=== PATIENT | female | born 1995 | race Caucasian/White ===

== ENCOUNTER 2016-11-26 18:08 | Emergency (ER) | payer OTHER ==
--- NOTE | 2016-11-26 19:02 | ED.PDOC ---
History of Present Illness - General Chief Complaint: ENT Problem Stated Complaint: sorethroat, fever Time Seen by Provider: 11/26/16 18:58 Source: patient, RN notes reviewed, Vital Signs reviewed Exam Limitations: no limitations - History of Present Illness Initial Comments: Patient presents to ER with c/o of sore throat and fever to 103.4 that started @ 06:00 today. + chills, body aches and swollen, painful lymph nodes. Timing/Duration: gradual Severity: moderate EENT Location: throat Prearrival Treatment: over the counter meds - Ibuprofen Improving Factors: nothing Worsening Factors: eating Associated Symptoms: fever, sore throat Allergies/Adverse Reactions: Allergies NO KNOWN ALLERGY Allergy (Verified 11/26/16 18:31) Home Medications: Ambulatory Orders Azithromycin 500 mg PO DAILY #4 tab 11/26/16 Review of Systems - Review of Systems Constitutional: States: chills, fever, malaise EENTM: States: throat pain, throat swelling Respiratory: States: no symptoms reported Cardiology: States: no symptoms reported Genitourinary: States: no symptoms reported Musculoskeletal: States: muscle pain Skin: States: no symptoms reported Neurological: States: no symptoms reported All other Systems: No Change from Baseline Past Medical History (General) - Patient Medical History Surgical History: other - Vaccination History Hx Influenza Vaccination: Yes Immunizations Up to Date: Yes - Social History Hx Tobacco Use: Yes Hx Alcohol Use: No Hx Substance Use: No Hx Substance Use Treatment: No Hx Depression: No - Female History Patient is a Female of Child Bearing Age (10 -59 yrs old): Yes Patient : No Family Medical History - Family History Mother Family History: Unknown Physical Exam - Physical Exam General Appearance: Alert, Ill Appearing, Well Developed, Well Groomed, Well Hydrated Eye Exam: bilateral normal Nasal Exam: normal inspection Throat Exam: pharynx swelling, pharynx tenderness, tonsillar swelling Neck: supple, lymphadenopathy (R), lymphadenopathy (L) Cardiovascular/Respiratory: regular rate, rhythm, no M/R/G, normal breath sounds , no respiratory distress Neurologic: alert, normal mood/affect, oriented x 3 Skin Exam: normal color, warm/dry Comments: Vital Signs 11/26/16 18:15 Temperature 101.1 F H Pulse Rate [ 130 H pulse ox] Respiratory 20 Rate Blood Pressure 106/63 [Left Arm] O2 Sat by Pulse 95 Oximetry Progress - Progress Progress: 11/26/16 19:17 Will give Solu-medrol 125mg IM and Zithromax 500mg PO - Results/Orders Results/Orders: Laboratory Tests 11/26/16 18:34 Group A Strep DNA Negative Strep culture pending Departure - Departure Clinical Impression: Pharyngitis Qualifiers: Pharyngitis/tonsillitis etiology: unspecified etiology Qualified Code(s): J02.9 - Acute pharyngitis, unspecified Time of Disposition: 19:18 Disposition: Discharge to Home or Self Care Condition: Good Departure Forms: ED Discharge - Pt. Copy, Patient Portal Self Enrollment, Work Release Form Instructions: DI for Pharyngitis/Tonsillopharyngitis -- Adult Diet: resume usual diet Activity: increase activity as tolerated Prescriptions: Azithromycin 500 mg PO DAILY #4 tab Home Medications: Ambulatory Orders Azithromycin 500 mg PO DAILY #4 tab 11/26/16
[2016-11-26] MEDS ORDERED: AZITHROMYCIN 250 MG TAB PO ONE (19:05)
[2016-11-26] MEDS ORDERED: methylPREDNISolone SODIUM SUC 125 MG/2 ML VIAL IM ONE (19:05)
[2016-11-26 19:15] VITALS: TEMP 101.1; O2SAT 95
[2016-11-26 19:40] VITALS: BP 100/63
== END 2016-11-26 19:40 | disposition home or self-care (01) ==
LOC: ER 18:08
DX: J02.9 Acute pharyngitis, unspecified (principal); Z87.891 Personal history of nicotine dependence
CPT/HCPCS: 87070; 87651; J2930; Q0144